=== PATIENT | female | born 1965 | race Caucasian/White ===

== ENCOUNTER 2020-03-21 14:44 | Emergency (ER) | payer OTHER, SELFPAY ==
[2020-03-21 14:45] VITALS: BP 122/77; PULSE 58; RESP 19; TEMP 36.7; O2SAT 96; BMI 28.8
--- NOTE | 2020-03-21 15:45 | HMH.EDUTC ---
[facility] [place] Clinical Impression: Bronchitis Sinusitis Qualifiers: Sinusitis location: unspecified location Chronicity: unspecified Qualified Code(s): J32.9 - Chronic sinusitis, unspecified Disposition: Home, Self-Care Condition on Discharge: Good Instructions: Sinusitis, Sinus Headache, Acute Bronchitis, DI for Sinusitis, DI for Acute Bronchitis, Azithromycin Additional Instructions: ? Start antibiotic today. Be sure to complete entire prescription even if feeling better ? Monitor temp. Tylenol every 4 hours as needed and / or ibuprofen every 6 hours as needed ( As long as your primary care physician has told you that it ok to take both. For fever/aches/pains ER if no less than 101 despite Tylenol or Motrin ? Humidifier/vaporizer or hot steamy shower ? Inhaler every 4-6 hours as needed like we discussed. If unsure how to use it, ask pharmacist to demonstrate how. Should help open airways and improve cough, wheezing, and shortness of breath ?Tessalon Perles will not cause drowsiness but use at bedtime to help stop cough so that you may get some rest. *Start steroid today. Helps with inflammation therefore, cough and wheezing. Follow directions on the package. Reviewed side effects. Patient reports taking them before. You was tested for COVID call back to the [facility] tomorrow for your test results and make sure to follow handout instructions Follow up IMMEDIATELY for new or worsening of symptoms OR no noticeable improvement over the next 48-72 hours. 911 immediately for any life threatening symptoms such as chest pain or difficulty breathing Prescriptions: Albuterol Sulfate [Proventil-HFA 90mcg/puff Inh] 1 - 2 puffs IH Q4HP PRN #1 inh PRN Reason: Shortness Of Breath Transmission Status: Received by [facility] #[id number] predniSONE [Deltasone 10mg tablet] 10 mg PO BID 5 Days #10 tab Transmission Status: Received by [facility] #[id number] Azithromycin [Z-J Carlos 250mg Tab] 250 mg PO DIRECTED #6 tab Transmission Status: Received by [facility] #[id number] Referrals: PCP,No [Primary Care Provider] - As needed Forms: Work/School Release Medical Decision Making - Brandon Inquiry Pt receiving controlled substance: No Brandon was queried for this patient: No Vital Signs: 03/21/20 14:45 03/21/20 15:59 Temperature 98.0 F 98.1 F Temperature Source Oral Pulse Rate 60 Pulse Rate [Right] 58 L Respiratory Rate 19 17 Blood Pressure 133/87 Blood Pressure [Right Arm] 122/77 Blood Pressure Mean [Right Arm] 92 02 Sat by Pulse Oximetry 96 Orders (Tests/Meds): ORDERS Category Date Time Status Coronavirus 19 Swab (OUTPT) Routine Lab 03/21/20 15:45 Ordered [facility] [place] - General Stated complaint: congestion, cough Time Seen by Provider: 03/21/20 15:45 Mode of Arrival: Ambulatory Limitations: No Limitations Description of Symptoms (Recalled from Triage Doc. by RN): C/O cough and congestion x3 days HEENT Symptoms (Recalled from RN notes): Yes Resp Symptoms (Recalled from RN notes): Yes Skin Symptoms (Recalled from RN notes): No MS Symptoms (Recalled from RN notes): No Functional Status (Recalled from RN notes): na - History of Present Illness Provider Complaint: Patient states that she has been having cough, sinus pain and pressure and scratchy throat for about 3-4 days and they wouldnt let her work States that she took some over the counter Medicaiton and it helped some but she is a heavy everyday smoker and often gets bronchitis State that today she was still having sinus pain and pressure so she come in to get checked and get checked for COVID so she could return to work - Related Data Home Medications Medication Instructions Recorded Confirmed Levothyroxine Sodium 125 mcg PO DAILY 08/25/18 03/21/20 [Levothyroxine 125mcg (0.125mg) Tab] PARoxetine HCL [Paroxetine HCl] 40 mg PO DAILY 08/25/18 03/21/20 Aspirin [Aspirin 81mg chewable 81 mg PO DAILY 03/21/20 03/21/20 tab] Fluticasone Propionate [Flonase
[2020-03-21 15:59] VITALS: BP 133/87; PULSE 60; RESP 17; TEMP 36.7; O2SAT 100
--- NOTE | 2020-03-21 16:15 | PC.NURSE ---
Notified lab a second time on covid swab, pt updated on POC
== END 2020-03-21 16:36 | disposition home or self-care (01) ==
PROVIDERS: Emergency Provider Nurse Practitioner
DX: J20.9 Acute bronchitis, unspecified (principal); J32.9 Chronic sinusitis, unspecified; Z20.828 Contact with and (suspected) exposure to other viral communicable diseases; F17.210 Nicotine dependence, cigarettes, uncomplicated
CPT/HCPCS: 99201; U0003

== ENCOUNTER 2020-04-17 10:48 | Emergency (ER) | payer OTHER, SELFPAY ==
[2020-04-17 10:50] VITALS: BP 115/74; PULSE 66; RESP 23; TEMP 36.7; O2SAT 96; BMI 29.7
--- NOTE | 2020-04-17 10:59 | XR_ITS ---
PROCEDURE: XR CHEST 2V CLINICAL HISTORY: soa COMPARISON: CR CXR2V XR chest 2V from 08/25/2018 CR XR CHEST 2V from 09/14/2019 FINDINGS: The cardiomediastinal silhouette and pulmonary vascularity are within normal limits. The lungs are clear without infiltrates, suspicious nodules, or pleural effusions. No acute bony abnormalities. IMPRESSION: No acute findings. Dictated by: Krystian Nur MD 04/17/2020 13:21 Krystian Nur MD in OV 04/17/2020 13:21
[2020-04-17 11:19] VITALS: BP 125/73; PULSE 68; O2SAT 94
[2020-04-17 11:33] VITALS: BP 112/71; PULSE 67; O2SAT 94
--- NOTE | 2020-04-17 11:42 | HMH.EDSOB ---
ED Disposition Clinical Impression: Acute exacerbation of chronic obstructive airways disease Disposition: Home, Self-Care Condition on Discharge: Good Instructions: DI for Shortness of Breath Prescriptions: Ipratropium/Albuterol Sulfate [Duoneb 3mL neb] 3 ml IH Q6H 30 Days #75 neb Transmission Status: Pending to [facility] Losartan Potassium 50 mg PO DAILY 30 Days #30 tab Transmission Status: Pending to [facility] methylPREDNISolone [Medrol 4mg tab] 4 mg PO DIRECTED #21 tab Transmission Status: Pending to [facility] Cefdinir [Omnicef 300mg Capsule] 300 mg PO BID 10 Days #20 cap Transmission Status: Pending to [facility] Cholecalciferol (Vitamin D3) [Replesta] 50,000 unit PO WEEKLY 30 Days #4 wafer Transmission Status: Pending to [facility] Referrals: Jacki Ivory DO [Primary Care Provider] - - Critical Care Critical Care Time: No Attestation: On 04/17/20, the high probability of a clinically significant, sudden or life threatening deterioration of the following system(s) required my full and direct attention, intervention and personal management. The time I documented below is in addition to time spent performing reported procedures but includes the following listed in this critical care notation. Medical Decision Making - Medical Records Medical records reviewed: Yes: I reviewed the patient's medical records. - Brandon Inquiry Pt receiving controlled substance: No Vital Signs: 04/17/20 10:50 04/17/20 11:19 04/17/20 11:33 Temperature 98.1 F Temperature Source Oral Pulse Rate [Right] 66 68 67 Respiratory Rate 23 Blood Pressure [Right Arm] 115/74 125/73 112/71 Blood Pressure Mean [Right Arm] 87 90 84 Blood Pressure Source [Right Arm] Automatic Cuff Automatic Cuff Blood Pressure Position [Right Arm] Sitting Sitting 02 Sat by Pulse Oximetry 96 94 L 94 L Oxygen Delivery Method Room Air Room Air - Lab Data Lab results reviewed: Yes: I reviewed the patient's lab results. Orders (Tests/Meds): ED MEDICATIONS Discontinued Medications Generic Name Dose Route Start Last Admin Trade Name Freq PRN Reason Stop Dose Admin Albuterol/Ipratropium 3 ml 04/17/20 10:59 04/17/20 11:05 Duoneb 3ml Neb IH 04/17/20 11:00 3 ml ONCE ONE Administration ORDERS Category Date Time Status XR chest 2V Stat Exams 04/17/20 10:59 Ordered Resp/SOB HPI - General Chief Complaint: Shortness of Breath/Dyspnea Stated Complaint: cg soa Time Seen by Provider: 04/17/20 11:42 Mode of Arrival: Ambulatory Source of Information: Patient Limitations: No Limitations Description of Symptoms (Recalled from ER Triage Doc. by RN): Pt states she was dx with bronchitis 2 weeks ago and continues to have increase soa and cough. - History of Present Illness 55-year-old female presents the emergency department with acute onset of shortness of breath. Patient states that she is actually been short of breath for about 2 weeks she has been treated with azithromycin and prednisone. She was on prednisone 1 tablet daily for 10 days she stated it really did not help. Patient also states that she has an albuterol inhaler and has helped somewhat but not given her full relief that she would like. Patient also states during the last 2 weeks she is been COVID tested 3 times and all of them been negative. Patient feels like this is similar to previous pneumonia that she is had in the past. Otherwise patient has no complaints. - Related Data Home Medications Medication Instructions Recorded Confirmed Levothyroxine Sodium 125 mcg PO DAILY 08/25/18 03/21/20 [Levothyroxine 125mcg (0.125mg) Tab] PARoxetine HCL [Paroxetine HCl] 40 mg PO DAILY 08/25/18 03/21/20 Aspirin [Aspirin 81mg chewable 81 mg PO DAILY 03/21/20 03/21/20 tab] Fluticasone Propionate [Flonase 2 spr NS DAILY 03/21/20 03/21/20 50mcg nasal spray 16gm] Previous
[2020-04-17 12:20] VITALS: BP 115/87; PULSE 65; RESP 21; TEMP 36.8; O2SAT 96
== END 2020-04-17 12:21 | disposition home or self-care (01) ==
PROVIDERS: Emergency Provider Family Medicine; PCP Family Medicine
DX: J44.1 Chronic obstructive pulmonary disease with (acute) exacerbation (principal); F17.210 Nicotine dependence, cigarettes, uncomplicated; Z79.899 Other long term (current) drug therapy; Z88.2 Allergy status to sulfonamides; Z88.5 Allergy status to narcotic agent
CPT/HCPCS: 71046; 99282

== ENCOUNTER 2020-08-08 07:30 | Emergency (ER) | payer OTHER, SELFPAY ==
[2020-08-08 07:31] VITALS: BP 135/78; PULSE 68; RESP 20; TEMP 36.5; O2SAT 97; BMI 29.2
[2020-08-08 07:59] VITALS: PULSE 64; O2SAT 96
[2020-08-08 08:34] VITALS: BP 125/82; PULSE 61; O2SAT 95
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
[2020-08-08 09:28] LABS: Microscopic, Urine URINE MICROSCOPIC (MICROSCOPIC)
[2020-08-08 09:30] LABS: Appearance,Urine CLEAR (Clear); Bilirubin,Urine Negative (Negative); Blood, Urine Negative (Negative); Color,Urine YELLOW (Yellow); Glucose,Urine (UA) Negative (Negative); Ketones,Urine Negative (Negative); Leukocyte Esterase,Urine Negative (Negative); Nitrate,Urine Negative (Negative); PH,Urine 5.5 (5.0-8.5); Protein,Urine Negative (Negative); Urobilinogen,Urine 0.2 EU/dl (0.2)
[2020-08-08 10:18] VITALS: BP 110/82; PULSE 61; RESP 20; TEMP 36.5; O2SAT 96
== END 2020-08-08 10:20 | disposition home or self-care (01) ==
PROVIDERS: Emergency Medicine; Emergency Provider Emergency Medicine; PCP Family Medicine
DX: S39.012A Strain of muscle, fascia and tendon of lower back, initial encounter (principal); Z88.5 Allergy status to narcotic agent; F17.210 Nicotine dependence, cigarettes, uncomplicated
CPT/HCPCS: 81001; 96372; 99282; J1030

== ENCOUNTER 2021-09-16 12:34 | Emergency (ER) | payer OTHER, SELFPAY ==
[2021-09-16 12:36] VITALS: BP 115/68; PULSE 71; RESP 16; TEMP 36.6; O2SAT 98; BMI 30.5
--- NOTE | 2021-09-16 12:48 | HMH.EDGENADL ---
ED Disposition Clinical Impression: Contusion of right knee and lower leg Qualifiers: Encounter type: initial encounter Qualified Code(s): S80.01XA - Contusion of right knee, initial encounter Disposition: Home, Self-Care Condition on Discharge: Good Instructions: Contusion Additional Instructions: , use crutches as needed, Follow up your Ortho doctor Referrals: Provider,Referral, [Primary Care Provider] - - Critical Care Critical Care Time: No Attestation: On , the high probability of a clinically significant, sudden or life threatening deterioration of the following system(s) required my full and direct attention, intervention and personal management. The time I documented below is in addition to time spent performing reported procedures but includes the following listed in this critical care notation. Medical Decision Making - Medical Records Medical records reviewed: Yes: I reviewed the patient's medical records. - Brandon Inquiry Pt receiving controlled substance: No Vital Signs: 09/16/21 12:36 09/16/21 13:00 09/16/21 13:30 Temperature 97.9 F Temperature Source Oral Pulse Rate 77 73 Pulse Rate [Right Radial] 71 Respiratory Rate 16 Blood Pressure 118/65 121/75 Blood Pressure [Right Arm] 115/68 Blood Pressure Mean 87 90 Blood Pressure Mean [Right Arm] 83 Blood Pressure Source [Right Arm] Automatic Cuff Blood Pressure Position [Right Arm] Sitting 02 Sat by Pulse Oximetry 98 Oxygen Delivery Method Room Air 09/16/21 14:00 09/16/21 14:42 Temperature 97.9 F Temperature Source Pulse Rate 80 80 Pulse Rate [Right Radial] Respiratory Rate 16 Blood Pressure 131/79 131/79 Blood Pressure [Right Arm] Blood Pressure Mean 99 Blood Pressure Mean [Right Arm] Blood Pressure Source [Right Arm] Blood Pressure Position [Right Arm] 02 Sat by Pulse Oximetry Oxygen Delivery Method Room Air Orders (Tests/Meds): ED MEDICATIONS Discontinued Medications Generic Name Dose Route Start Last Admin Trade Name Freq PRN Reason Stop Dose Admin Oxycodone/Acetaminophen 1 each 09/16/21 13:53 09/16/21 14:01 Oxycodone 5mg W/Apap 325mg Tablet PO 09/16/21 13:54 1 each ONCE ONE Administration General Adult HPI - General Stated complaint: AO fall 2/ rt leg injury Time Seen by Provider: 09/16/21 12:50 - History of Present Illness HPI narrative: 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(s) Radiation: extremity Severity: moderate Consistency: constant Relieving factors: immobilization Exacerbating factors: movement Associated symptoms: denies other symptoms - Related Data Home Medications Medication Instructions Recorded Confirmed Levothyroxine Sodium 125 mcg PO DAILY 08/25/18 03/21/20 [Levothyroxine 125mcg (0.125mg) Tab] PARoxetine HCL [Paroxetine HCl] 40 mg PO DAILY 08/25/18 03/21/20 Aspirin [Aspirin 81mg chewable 81 mg PO DAILY 03/21/20 03/21/20 tab] Fluticasone Propionate [Flonase 2 spr NS DAILY 03/21/20 03/21/20 50mcg nasal spray 16gm] Previous Rx's Medication Instructions Recorded Albuterol Sulfate [Proventil-HFA 1 - 2 puffs IH Q4HP PRN #1 inh 03/21/20 90mcg/puff Inh] Azithromycin [Z-J Carlos 250mg Tab] 250 mg PO DIRECTED #6 tab 03/21/20 predniSONE [Deltasone 10mg tablet] 10 mg PO BID 5 Days #10 tab 03/21/20 Cefdinir [Omnicef 300mg Capsule] 300 mg PO BID 10 Days #20 cap 04/17/20 Cholecalciferol (Vitamin D3) 50,000 unit PO WEEKLY 30 Days #4 04/17/20 [Replesta] wafer Ipratropium/Albuterol Sulfate 3 ml IH Q6H 30 Days #75 neb 04/17/20 [Duoneb 3mL neb] Losartan Potassium 50 mg PO DAILY 30 Days #30 tab 04/17/20 methylPREDNISolone [Medrol 4mg 4 mg PO DIRECTED #21 tab 04/17/20 tab] Cyclobenzaprine HCl [Flexeril 10mg 10 mg PO Q8H PRN 7 Days #21 tab 08/08/20 tablet] Diclofenac Sodium [Voltaren 100gm 1 applicatio TP Q4-6H PRN #100 gm 08/08/20 Topical Gel] methylPREDNISolone
--- NOTE | 2021-09-16 12:50 | XR_ITS ---
FINAL REPORT CLINICAL HISTORY: fall/pain FINDINGS: 3 views of the right knee reveal no evidence of fracture or dislocation. There are postoperative changes from ORIF of the femur with a screw plate and multiple screws present. There is a chronic bony irregularity of the distal femur. The bony alignment is normal. There are mild degenerative changes of the knee. There is no evidence of joint effusion. No localized soft tissue abnormality is identified. IMPRESSION: Postoperative and degenerative changes with no acute bony abnormality. Reviewed, Interpreted and Dictated by Carlos Gallardo III, MD Transcribed by Reshma Sandoval Authenticated by Carlos Gallardo III, MD on 09/16/2021 01:53:51 PM [facility]
[2021-09-16 13:00] VITALS: BP 118/65; PULSE 77
--- NOTE | 2021-09-16 13:07 | PC.NURSE ---
Pt returned from RAD
--- NOTE | 2021-09-16 13:07 | PC.NURSE ---
pt returned from rad
[2021-09-16 13:30] VITALS: BP 121/75; PULSE 73
--- NOTE | 2021-09-16 13:45 | PC.NURSE ---
Called radiology for stat reading for possible new fracture near hardware
[2021-09-16 14:00] VITALS: BP 131/79; PULSE 80
[2021-09-16 14:42] VITALS: BP 131/79; PULSE 80; RESP 16; TEMP 36.6; O2SAT 98
== END 2021-09-16 14:42 | disposition home or self-care (01) ==
PROVIDERS: Emergency Provider Emergency Medicine
DX: S80.01XA Contusion of right knee, initial encounter (principal); W00.0XXA Fall on same level due to ice and snow, initial encounter; F17.210 Nicotine dependence, cigarettes, uncomplicated
CPT/HCPCS: 73562; 99282

== ENCOUNTER 2021-12-19 15:22 | Emergency (ER) | payer OTHER, SELFPAY ==
[2021-12-19] VITALS (8 sets, daily range): BP systolic 120–154; BP diastolic 64–89; PULSE 62–80; RESP 18; TEMP 36.6; O2SAT 2–97; BMI 29.0
[2021-12-19 16:12] LABS: Chloride 105 mmol/L (98-107); Potassium 3.8 mmoL/L (3.5-5.1); Sodium 138 mmol/L (136-145)
[2021-12-19 16:15] LABS: Alanine Aminotransferase 288 U/L (12-78); Albumin Level 3.8 g/dl (3.5-5.0); Albumin/Globulin Ratio 1.2 (1.1-1.8); Alkaline Phosphatase 285 U/L (38-126); Anion Gap 6.8 mEq/L (5-15); Aspartate Amino Transferase 731 U/L (14-36); Blood Urea Nitrogen 9 mg/dl (7-17); Calcium 9.6 mg/dl (8.4-10.2); Carbon Dioxide 30 mmol/L (22.0-30.0); Creatinine Clearance Estimated 142 mL/min (50-200); Estimated Glomerular Filt Rate 104 ml/min (>60); GFR (African American) 126 ML/MIN (>60); Globulin 3.1 g/dL (1.3-3.2); Glucose 119 mg/dl (74-100); Total Protein,Serum 6.9 g/dl (6.3-8.2)
[2021-12-19 16:19] LABS: Basophils # 0.4 K/mm3 (0-0.2); Basophils % 3.1 % (0.1-2.0); Eosinophils # 0.2 K/mm3 (0.0-0.4); Eosinophils % 1.2 % (0.1-12.0); Hematocrit 51.7 % (37.0-47.0); Hemoglobin 17.1 g/dL (12.2-16.2); Lymphocytes % 29.6 % (10-50); Mean Corpuscular Hemoglobin 31.3 pg (27.0-31.2); Mean Corpuscular Volume 94.6 fl (81-99); Monocytes # 0.9 K/mm3 (0.1-1.0); Neutrophils # 7.9 K/mm3 (1.8-7.8); Neutrophils % 59.1 % (37.0-80.0); Platelet Count 363 K/mm3 (142-424); Red Blood Count 5.46 M/mm3 (4.20-5.40); White Blood Count 13.4 K/mm3 (4.8-10.8)
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
[2021-12-19 16:29] LABS: Troponin I < 0.01 ng/ml (0.00-0.034)
[2021-12-19 16:30] LABS: Lipase 610 U/L (23-300)
--- NOTE | 2021-12-19 17:42 | HMH.EDABDPAI ---
ED Disposition Clinical Impression: Acute cholecystitis, Cholangitis Biliary acute pancreatitis Qualifiers: Acute pancreatitis complication: infected necrosis Qualified Code(s): K85.12 - Biliary acute pancreatitis with infected necrosis Disposition: er Intermediate Care Fac Condition on Discharge: Serious Instructions: DI for Acute Abdominal Pain Referrals: Provider,Referral, [Primary Care Provider] - - Critical Care Critical Care Time: No Attestation: On 12/19/21, the high probability of a clinically significant, sudden or life threatening deterioration of the following system(s) required my full and direct attention, intervention and personal management. The time I documented below is in addition to time spent performing reported procedures but includes the following listed in this critical care notation. Medical Decision Making - Medical Records Medical records reviewed: Yes: I reviewed the patient's medical records. - Brandon Inquiry Pt receiving controlled substance: Yes Brandon was queried for this patient: No Reason not queried -: Emergent pt cond-no time Risks and benefits of using a controlled substance: were discussed with pt by me Vital Signs: 12/19/21 15:24 12/19/21 15:30 12/19/21 16:00 Temperature 97.8 F Temperature Source Oral Pulse Rate 69 63 Pulse Rate [Right Radial] 71 Respiratory Rate 18 18 18 Blood Pressure 154/77 H 120/64 Blood Pressure [Right Arm] 154/77 H Blood Pressure Mean 120 84 Blood Pressure Mean [Right Arm] 102 Blood Pressure Source Automatic Cuff Blood Pressure Source [Right Arm] Automatic Cuff Blood Pressure Position Sitting Blood Pressure Position [Right Arm] Sitting 02 Sat by Pulse Oximetry 97 97 96 Oxygen Delivery Method Nasal Cannula Nasal Cannula Room Air Oxygen Flow Rate (LPM) 2 2 12/19/21 17:00 12/19/21 17:30 12/19/21 18:00 Temperature Temperature Source Pulse Rate 70 80 65 Pulse Rate [Right Radial] Respiratory Rate 18 18 18 Blood Pressure 132/83 131/81 140/89 Blood Pressure [Right Arm] Blood Pressure Mean 93 102 111 Blood Pressure Mean [Right Arm] Blood Pressure Source Blood Pressure Source [Right Arm] Blood Pressure Position Blood Pressure Position [Right Arm] 02 Sat by Pulse Oximetry 2 L 95 95 Oxygen Delivery Method Nasal Cannula Nasal Cannula Nasal Cannula Oxygen Flow Rate (LPM) 2 2 2 - Lab Data Lab Results 12/19/21 16:00: WBC 13.4 H, RBC 5.46 H, Hgb 17.1 H, Hct 51.7 H, MCV 94.6, MCH 31.3 H, MCHC 33.0, RDW 14.0, Plt Count 363, MPV 10.0, Neut % (Auto) 59.1, Lymph % (Auto) 29.6, Sevier % (Auto) 7.0, Eos % (Auto) 1.2, Baso % (Auto) 3.1 H, Neut # (Auto) 7.9 H, Lymph # (Auto) 4.0, Sevier # (Auto) 0.9, Eos # (Auto) 0.2, Baso # (Auto) 0.4 H 12/19/21 16:00: Sodium 138, Potassium 3.8, Chloride 105, Carbon Dioxide 30, Anion Gap 6.8, BUN 9, Creatinine 0.60, Estimated Creat Clear 142, Estimated GFR 104, Est GFR ( Amer) 126, Glucose 119 H, Calcium 9.6, Total Bilirubin 3.0 H, AST 731 H*, ALT 288 H, Alkaline Phosphatase 285 H, Troponin I < 0.01, Total Protein 6.9, Albumin 3.8, Globulin 3.1, Albumin/Globulin Ratio 1.2, Lipase 610 H Result diagrams: 12/19/21 16:00 12/19/21 16:00 Orders (Tests/Meds): ED MEDICATIONS Generic Name Dose Route Start Last Admin Trade Name Freq PRN Reason Stop Dose Admin Piperacillin Sod/Tazobactam 100 mls @ 200 mls/hr 12/19/21 17:45 Sod 4.5 gm/ Sodium Chloride IV 01/02/22 17:44 Q8H ALEIDA Sodium Chloride 10 ml 12/19/21 16:01 Sodium Chloride 0.9% 10ml Flush Syringe IV 01/18/22 16:00 NEEDED PRN Maintain IV Site Discontinued Medications Generic Name Dose Route Start Last Admin Trade Name Freq PRN Reason Stop Dose Admin Sodium Chloride 1,000 mls @ 999 mls/hr 12/19/21 15:45 12/19/21 16:03 Sod Chlor 0.9% 1000ml Bag IV 12/19/21 16:45 999 mls/hr .Q1H1M ALEIDA Administration Iopamidol 75 ml 12/19/21 16:43 12/19/21 16:44 Iopamidol-3
--- NOTE | 2021-12-19 18:05 | PC.NURSE ---
Dr Wray speaking with transfer center
--- NOTE | 2021-12-19 18:29 | PC.NURSE ---
notified [facility] transport, states they will be up here to transport pt when [place] the [place]
[2021-12-19 18:34] LABS: Coronavirus 19, PCR Not Detected (NotDetected); Influenza A, PCR Not Detected (NotDetected); Influenza B, PCR Not Detected (NotDetected)
--- NOTE | 2021-12-19 18:36 | PC.NURSE ---
report called to BRISEIDA Young at ER
--- NOTE | 2021-12-19 19:20 | PC.NURSE ---
shift change report given to em,rn - pt is awaiting transfer per [facility] to ER
== END 2021-12-19 20:40 ==
PROVIDERS: Emergency Provider Emergency Medicine
DX: K85.12 Biliary acute pancreatitis with infected necrosis (principal); K81.0 Acute cholecystitis; R19.7 Diarrhea, unspecified; R11.10 Vomiting, unspecified; Z20.822 Contact with and (suspected) exposure to COVID-19; Z79.51 Long term (current) use of inhaled steroids; Z79.52 Long term (current) use of systemic steroids; Z79.82 Long term (current) use of aspirin; Z79.899 Other long term (current) drug therapy; Z88.5 Allergy status to narcotic agent; Z88.8 Allergy status to other drugs, medicaments and biological substances
CPT/HCPCS: 74177; 80053; 83690; 84484; 85025; 96361; 96374; 96375; 96376; 99285; C9803; J2405; J2543; Q9967; U0003; U0005

== ENCOUNTER 2022-09-21 12:38 | Emergency (ER) | payer OTHER, SELFPAY ==
[2022-09-21 12:50] VITALS: BP 149/86; PULSE 63; RESP 18; O2SAT 97
[2022-09-21 12:55] VITALS: BP 149/86; PULSE 80; RESP 20; TEMP 36.7; O2SAT 96; BMI 28.1
[2022-09-21 13:01] VITALS: BP 129/87; PULSE 80; RESP 18; O2SAT 99
[2022-09-21 13:12] LABS: Coronavirus 19, PCR Not Detected (NotDetected); Influenza B, PCR Not Detected (NotDetected)
[2022-09-21 13:30] VITALS: BP 120/97; PULSE 77; RESP 18; O2SAT 94
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
--- NOTE | 2022-09-21 13:32 | HMH.EDGENADL ---
Discharge Plan Disposition Patient Disposition: Home, Self-Care Condition: Good Prescriptions Prescriptions: New levofloxacin 500 mg tablet 500 mg PO DAILY 7 Days Qty: 7 0RF benzonatate 100 mg capsule 100 mg PO TID PRN (Reason: cough) Qty: 20 0RF No Action aspirin 81 MG tablet,chewable 81 mg PO DAILY fluticasone propionate 120 SPR/BOT bottle 2 spr NS DAILY prednisone 10 MG tablet 10 mg PO BID 5 Days Qty: 10 0RF azithromycin 250 MG tablet 250 mg PO DIRECTED Qty: 6 0RF Rx Instructions: Take two (2) tablets on day #1, then one (1) tablet day #2 thru #5 albuterol sulfate 200 PUFFS HFA aerosol inhaler 1 - 2 puffs IH Q4HP PRN (Reason: Shortness Of Breath) Qty: 1 0RF levothyroxine 125 MCG tablet 125 mcg PO DAILY paroxetine HCl 40 MG tablet 40 mg PO DAILY cefdinir 300 MG capsule 300 mg PO BID 10 Days Qty: 20 0RF losartan 50 MG tablet 50 mg PO DAILY 30 Days Qty: 30 2RF cholecalciferol (vitamin D3) 1,250 MCG wafer 50,000 unit PO WEEKLY 30 Days Qty: 4 3RF methylprednisolone 4 MG tablet 4 mg PO DIRECTED Qty: 21 0RF Rx Instructions: Take as directed on package instructions ipratropium-albuterol 3 ML solution for nebulization 3 ml IH Q6H 30 Days Qty: 75 0RF cyclobenzaprine 10 MG tablet 10 mg PO Q8H PRN (Reason: Muscle Spasm) 7 Days Qty: 21 0RF diclofenac sodium 100 GM gel 1 applicatio TP Q4-6H PRN (Reason: Moderate Pain) Qty: 100 1RF methylprednisolone 4 MG tablet 4 mg PO DIRECTED Qty: 21 0RF Rx Instructions: Take as directed on package instructions Referrals Follow up/Referrals: Jacki Ivory DO [Primary Care Provider] - See instructions Activity Restrictions/Add. Instructions Additional Instructions/Restrictions: Levaquin as prescribed. Tessalon as needed for cough. Follow-up with primary care provider if not improving in 4 to 5 days. Return emergency department if worsening shortness of breath or fever. Clinical Impressions Clinical Impression: Influenza A, Acute bronchitis Instructions Patient Instructions: DI for Influenza -- Adult, DI for Acute Bronchitis Discharge ED Provider: Renusch,Zoltan General Adult HPI General Chief complaint: Shortness of Breath/Dyspnea Stated complaint: Cough,Congestion,headache,soa Time Seen by Provider: 09/21/22 13:21 Mode of Arrival: Ambulatory Source of Information: Patient Limitations: No Limitations Description of Symptoms (Recalled from ER Triage Doc. by RN): Presents with increased shortness of breath, frequent productive cough, and body aches since last Thu. Reports 101 F fever Thursday. Recent exposure to relative with illness. + Smoker. Hx of COPD. Home O2 2.5L (baseline). History of Present Illness HPI narrative: Patient states that she has been sick since Thursday 4 days ago. She has a bad cough. Producing white sputum. Low-grade fever, body aches. Nasal congestion. No sore throat except when she coughs. No chest pain. She has some abdominal soreness from tightening her abdominal muscles and coughing. She has COPD and is on oxygen 2.5 L at all times. She is a smoker. Her adopted daughter is also here being seen for the same symptoms and has been sick longer reporting to the patient. Related Data Home Medications Medication Instructions Recorded Confirmed levothyroxine 125 mcg tablet 125 mcg PO DAILY THYROID 08/25/18 03/21/20 paroxetine HCl 40 mg tablet 40 mg PO DAILY Depression 08/25/18 03/21/20 aspirin 81 mg chewable tablet 81 mg PO DAILY Heartburn 03/21/20 03/21/20 fluticasone propionate 50 2 spr NS DAILY allergies 03/21/20 03/21/20 mcg/actuation nasal spray,suspension Previous Rx's Medication Instructions Recorded albuterol sulfate 90 mcg/actuation 1 - 2 puffs IH Q4HP PRN Shortness 03/21/20 aerosol inhaler Of Breath #1 inh azithromycin 250 mg tablet 250 mg PO DIRECTED #6 tabs 03/21/20 prednisone 10 mg ta
[2022-09-21 13:35] LABS: Influenza A, PCR Detected (NotDetected)
[2022-09-21 14:00] LABS: Alanine Aminotransferase 29 U/L (12-78); Albumin Level 3.9 g/dl (3.5-5.0); Albumin/Globulin Ratio 1.3 (1.1-1.8); Alkaline Phosphatase 151 U/L (38-126); Aspartate Amino Transferase 50 U/L (14-36); Bilirubin,Total 0.3 mg/dl (0.2-1.3); Blood Urea Nitrogen 7 mg/dl (7-17); Calcium 8.5 mg/dl (8.4-10.2); Carbon Dioxide 28 mmol/L (22.0-30.0); Chloride 105 mmol/L (98-107); Creatinine Clearance Estimated 137 mL/min (50-200); Estimated Glomerular Filt Rate 104 ml/min (>60); GFR (African American) 126 ML/MIN (>60); Globulin 3.1 g/dL (1.3-3.2); Glucose 94 mg/dl (74-100); Sodium 139 mmol/L (136-145)
[2022-09-21 14:01] VITALS: BP 132/77; PULSE 102; RESP 18; O2SAT 95
[2022-09-21 14:01] LABS: Lactic Acid 0.7 mmol/L (0.7-2.1)
[2022-09-21 14:08] LABS: Basophils # 0.2 K/mm3 (0-0.2); Basophils % 2.1 % (0.1-2.0); Eosinophils # 0.2 K/mm3 (0.0-0.4); Eosinophils % 2.8 % (0.1-12.0); Hematocrit 50.8 % (37.0-47.0); Lymphocytes # 3.5 K/mm3 (0.7-4.5); Lymphocytes % 46.5 % (10-50); Mean Corpuscular HGB Conc 33.5 g/dL (31.8-35.4); Mean Corpuscular Hemoglobin 31.5 pg (27.0-31.2); Mean Platelet Volume 9.7 fl (7.4-10.4); Monocytes # 0.7 K/mm3 (0.1-1.0); Monocytes % 9.4 % (1.7-9.3); Neutrophils # 2.9 K/mm3 (1.8-7.8); Neutrophils % 39.3 % (37.0-80.0); Platelet Count 308 K/mm3 (142-424); Red Cell Distribution Width 13.4 % (11.5-17.5); White Blood Count 7.5 K/mm3 (4.8-10.8)
[2022-09-21 15:12] VITALS: BP 142/90; PULSE 72; RESP 18; TEMP 36.8
== END 2022-09-21 15:14 | disposition home or self-care (01) ==
PROVIDERS: Emergency Provider Emergency Medicine; PCP Family Medicine
DX: J09.X9 Influenza due to identified novel influenza A virus with other manifestations (principal); J20.9 Acute bronchitis, unspecified; F17.210 Nicotine dependence, cigarettes, uncomplicated; Z20.822 Contact with and (suspected) exposure to COVID-19
CPT/HCPCS: 71046; 80053; 83605; 85025; 87040; 99285; C9803; U0003; U0005

== ENCOUNTER 2023-05-16 14:07 | Emergency (ER) | payer OTHER, SELFPAY ==
[2023-05-16 14:08] VITALS: BP 165/94; PULSE 60; RESP 22; TEMP 36.4; O2SAT 96; BMI 29.0
--- NOTE | 2023-05-16 14:25 | PC.NURSE ---
Dr. Hall at BS for pt eval
[2023-05-16 14:30] VITALS: BP 149/92; PULSE 60; RESP 20; O2SAT 96
--- NOTE | 2023-05-16 14:42 | CT_ITS ---
PROCEDURE INFORMATION: Exam: CT Abdomen And Pelvis With Contrast Exam date and time: 05/16/2023 3:25 PM Age: 58 years old Clinical indication: Abdominal pain; Prior surgery; Surgery date: 6+ months; Surgery type: Gallbladder; Additional info: Upper abdominal pain TECHNIQUE: Imaging protocol: Computed tomography of the abdomen and pelvis with contrast. Radiation optimization: All CT scans at this facility use at least one of these dose optimization techniques: automated exposure control; mA and/or kV adjustment per patient size (includes targeted exams where dose is matched to clinical indication); or iterative reconstruction. Contrast material: ISOVUE; Contrast volume: 75 ml; Contrast route: IV; REPORTING DATA: Count of CT and Cardiac NM exams in prior 12 months: This patient has received 0 known CTs and 0 known cardiac nuclear medicine studies in the 12 months prior to the current study. COMPARISON: CT ABDOMEN PELVIS W CON 12/19/2021 4:32 PM FINDINGS: Liver: Normal. No mass. Gallbladder and bile ducts: Post cholecystectomy clips. Pancreas: Normal. No ductal dilation. Spleen: Post splenectomy changes. Few small splenules in the left upper quadrant the abdomen. Adrenal glands: Normal. No mass. Kidneys and ureters: Normal. No hydronephrosis. Stomach and bowel: Unremarkable. No obstruction. No mucosal thickening. Appendix: The appendix is visualized and appears normal. Intraperitoneal space: Unremarkable. No free air. No significant fluid collection. Vasculature: Partially visualized descending thoracic aortic aneurysm stent graft. Partially visualized leadless cardiac device in the right ventricle. Celiac artery ostial stent. Aortoiliac atherosclerosis. No aneurysm. Lymph nodes: Unremarkable. No enlarged lymph nodes. Urinary bladder: Unremarkable as visualized. Reproductive: Post hysterectomy. Bones/joints: Unremarkable. No acute fracture. Soft tissues: Unremarkable. IMPRESSION: No acute abdominopelvic abnormality.
--- NOTE | 2023-05-16 14:43 | XR_ITS ---
PROCEDURE INFORMATION: Exam: XR Chest Exam date and time: 05/16/2023 3:49 PM Age: 58 years old Clinical indication: Cough; Additional info: Ruq abd pain, increased cough TECHNIQUE: Imaging protocol: Radiologic exam of the chest. Views: 1 view. COMPARISON: CR XR CHEST 2V 09/21/2022 1:35 PM FINDINGS: Lungs: Unremarkable. No consolidation. Pleural spaces: Unremarkable. No pleural effusion. No pneumothorax. Heart/Mediastinum: Status post thoracic endovascular aortic aneurysm repair with stent graft. Leadless cardiac device overlying the left paramidline chest. No cardiomegaly. Bones/joints: No acute fracture. IMPRESSION: No acute cardiopulmonary abnormality.
[2023-05-16 15:08] LABS: Microscopic, Urine URINE MICROSCOPIC (MICROSCOPIC)
--- NOTE | 2023-05-16 15:11 | ECG_ITS ---
APPROVED REPORT Exam: Resting ECG HR:55 bpm ECG Measurements Heart Rate 55 AXES GA 160 P 67 QRSd 125 QRS 4 QT 461 T 56 QTc 450 Conclusion SINUS BRADYCARDIA with isolated PVC RIGHT BUNDLE BRANCH BLOCK [120+ ms QRS DURATION, UPRIGHT V1, 40+ ms S IN I/aVL/V4/V5/V6] ABNORMAL ECG UNCONFIRMED REPORT Electronically signed by : Hipolito Wagner MD 05/17/2023 07:34:27
--- NOTE | 2023-05-16 15:15 | PC.NURSE ---
Pt gone to RAD via wheelchair
--- NOTE | 2023-05-16 15:21 | PC.NURSE ---
pt to CT scan via wheelchair
[2023-05-16 15:24] LABS: Coronavirus 19, PCR Not Detected (NotDetected); Influenza A, PCR Not Detected (NotDetected); Influenza B, PCR Not Detected (NotDetected)
--- NOTE | 2023-05-16 15:25 | HMH.EDGENADL ---
Discharge Plan Disposition Patient Disposition: Home, Self-Care Prescriptions Prescriptions: New dicyclomine 20 mg tablet 20 mg PO TID PRN (Reason: abdominal pain or spasm) 7 Days Qty: 21 0RF ondansetron 4 mg tablet,disintegrating 4 mg PO Q6H PRN (Reason: nausea and vomiting) 5 Days Qty: 20 0RF No Action fluticasone propionate 120 SPR/BOT bottle 2 spr NS DAILY albuterol sulfate 200 PUFFS HFA aerosol inhaler 1 - 2 puffs IH Q4HP PRN (Reason: Shortness Of Breath) Qty: 1 0RF buspirone 5 mg tablet 5 mg PO BIDP PRN (Reason: Anxiety) Patient Comments: TAKE 1 TABLET BY MOUTH TWICE A DAY quetiapine 100 mg tablet 100 mg PO HS Patient Comments: TAKE ONE TABLET BY MOUTH NIGHTLY levothyroxine 125 MCG tablet 125 mcg PO DAILY paroxetine HCl 40 MG tablet 40 mg PO DAILY losartan 50 MG tablet 50 mg PO DAILY 30 Days Qty: 30 2RF cholecalciferol (vitamin D3) 1,250 MCG wafer 50,000 unit PO WEEKLY 30 Days Qty: 4 3RF ipratropium-albuterol 3 ML solution for nebulization 3 ml IH Q6H 30 Days Qty: 75 0RF cyclobenzaprine 10 MG tablet 10 mg PO Q8H PRN (Reason: Muscle Spasm) 7 Days Qty: 21 0RF diclofenac sodium 100 GM gel 1 applicatio TP Q4-6H PRN (Reason: Moderate Pain) Qty: 100 1RF Referrals Follow up/Referrals: Jacki Ivory DO [Primary Care Provider] - See instructions Activity Restrictions/Add. Instructions Additional Instructions/Restrictions: There was no emergent or surgical abnormality found on your emergency evaluation today. Please follow with your primary care doctor regarding your discomfort return to the emergency department any worsening symptoms. Clinical Impressions Clinical Impression: Nonspecific abdominal pain Instructions Patient Instructions: DI for Acute Abdominal Pain Discharge ED Provider: Harshad Hall I General Adult HPI <Harshad Hall MD - Last Filed: 05/16/23 16:14> General Chief complaint: Abdominal Pain Stated complaint: right side pain Time Seen by Provider: 05/16/23 14:18 Mode of Arrival: Family Vehicle Source of Information: Patient Limitations: No Limitations Description of Symptoms (Recalled from ER Triage Doc. by RN): Pt c/o RUQ ABD pain that began today. States the pain has been severe and pain is more tolerable if she pushes in . Reports the pain is similar to before I had my gallbladder out . Denies any current nausea or vomiting. She did have diarrhea yesterday. She also has a hx of pancreatitis and Hep C. Denies fever. She reports chronic body aches and chills. States she had a CT with IV contrast @ last week to check stent in my stomach History of Present Illness HPI narrative: Patient is a 58-year-old female with history of COPD on 2.5 L nasal cannula, prior cholecystectomy, pacemaker in place presenting to the emergency department with right upper quadrant abdominal pain that started this morning. History was conducted with the patient at bedside. Patient reports that her pain feels similar to prior gallbladder pain when she had her gallbladder removed in December of this year. She reports that the pain is in her right upper quadrant, is a dull pain that occasionally has sharp worsening of pain. He has not had any associated nausea or vomiting. However, over the past 2 days she has had 2 episodes of watery nonbloody diarrhea. She has reported a slightly increased dry cough. Denies congestion, runny nose, fever, chest pain, shortness of breath or difficulty breathing that has changed from baseline. Related Data Home Medications Medication Instructions Recorded Confirmed levothyroxine 125 mcg tablet 125 mcg PO DAILY THYROID 08/25/18 05/16/23 paroxetine HCl 40 mg tablet 40 mg PO DAILY Depression 08/25/18 05/16/23 fluticasone propionate 50 2 spr NS DAILY allergies 03/21/20 05/16/23 mcg/actuation nasal spray,suspension buspirone 5 mg tablet 5 mg PO BIDP PRN Anxiety 05/16/23 05/16/23 quetiapine
[2023-05-16 15:29] LABS: Chloride 107 mmol/L (98-107); Sodium 140 mmol/L (136-145)
[2023-05-16 15:29] LABS: Appearance,Urine CLEAR (Clear); Bilirubin,Urine Negative (Negative); Blood, Urine Negative (Negative); Color,Urine YELLOW (Yellow); Glucose,Urine (UA) Negative (Negative); Ketones,Urine Negative (Negative); Leukocyte Esterase,Urine Negative (Negative); Nitrate,Urine Negative (Negative); PH,Urine 5.5 (5.0-8.5); Protein,Urine Negative (Negative); Specific Gravity, Urine >= 1.030 (1.005-1.030); Urobilinogen,Urine 0.2 EU/dl (0.2)
[2023-05-16 15:31] LABS: Alanine Aminotransferase 18 U/L (12-78); Aspartate Amino Transferase 29 U/L (14-36); Basophils # 0.1 K/mm3 (0-0.2); Basophils % 1.1 % (0.1-2.0); Bilirubin,Total 0.3 mg/dl (0.2-1.3); Blood Urea Nitrogen 8 mg/dl (7-17); Creatinine Clearance Estimated 139 mL/min (50-200); Eosinophils # 0.4 K/mm3 (0.0-0.4); Eosinophils % 3.8 % (0.1-12.0); Estimated Glomerular Filt Rate 103 ml/min (>60); GFR (African American) 125 ML/MIN (>60); Hematocrit 54.3 % (37.0-47.0); Hemoglobin 17.4 g/dL (12.2-16.2); Lymphocytes # 5.7 K/mm3 (0.7-4.5); Lymphocytes % 49.3 % (10-50); Mean Corpuscular Hemoglobin 31.1 pg (27.0-31.2); Mean Corpuscular Volume 97.3 fl (81-99); Mean Platelet Volume 9.8 fl (7.4-10.4); Monocytes # 0.7 K/mm3 (0.1-1.0); Monocytes % 6.4 % (1.7-9.3); Neutrophils # 4.5 K/mm3 (1.8-7.8); Neutrophils % 39.3 % (37.0-80.0); Platelet Count 293 K/mm3 (142-424); Red Blood Count 5.58 M/mm3 (4.20-5.40); Red Cell Distribution Width 13.5 % (11.5-17.5); White Blood Count 11.5 K/mm3 (4.8-10.8)
[2023-05-16 15:32] LABS: Albumin Level 4.1 g/dl (3.5-5.0); Albumin/Globulin Ratio 1.3 (1.1-1.8); Alkaline Phosphatase 121 U/L (38-126); Carbon Dioxide 26 mmol/L (22.0-30.0); Globulin 3.2 g/dL (1.3-3.2); Glucose 95 mg/dl (74-100); Lipase 66 U/L (23-300); Total Protein,Serum 7.3 g/dl (6.3-8.2)
--- NOTE | 2023-05-16 15:36 | PC.NURSE ---
pt return from CT
[2023-05-16 15:37] VITALS: BP 141/69; PULSE 59; O2SAT 93
--- NOTE | 2023-05-16 15:40 | PC.NURSE ---
cmm technician notified staff that following ct scan, pt promptly vomited. Dr. Hall notified and order new antiemetic.
[2023-05-16 15:46] LABS: Squamous Epithelial Cell,Urine Occasional #/hpf (0-5)
--- NOTE | 2023-05-16 16:30 | PC.NURSE ---
Dr. Caceres at bedside discussing results with pt
[2023-05-16 16:50] VITALS: BP 142/80; PULSE 60; RESP 20; TEMP 36.7; O2SAT 95
== END 2023-05-16 17:02 | disposition home or self-care (01) ==
PROVIDERS: Emergency Provider Emergency Medicine; PCP Family Medicine
DX: R10.10 Upper abdominal pain, unspecified (principal); R11.2 Nausea with vomiting, unspecified; R00.1 Bradycardia, unspecified; F17.210 Nicotine dependence, cigarettes, uncomplicated; J44.9 Chronic obstructive pulmonary disease, unspecified; Z95.0 Presence of cardiac pacemaker
CPT/HCPCS: 71045; 74177; 80053; 81001; 83690; 85025; 87636; 93005; 96374; 96375; 99285; J2405; Q9967

== ENCOUNTER 2024-02-04 10:25 | Outpatient (CLI) | payer MEDICAID, SELFPAY ==
[2024-02-04 17:14] LABS: Microscopic, Urine URINE MICROSCOPIC (MICROSCOPIC)
[2024-02-04 17:51] LABS: Basophils # 0.1 K/mm3 (0-0.2); Eosinophils # 0.4 K/mm3 (0.0-0.4); Eosinophils % 3.7 % (0.1-12.0); Hematocrit 53.3 % (37.0-47.0); Hemoglobin 17.8 g/dL (12.2-16.2); Lymphocytes # 6.7 K/mm3 (0.7-4.5); Lymphocytes % 59.3 % (10-50); Mean Corpuscular HGB Conc 33.4 g/dL (31.8-35.4); Mean Corpuscular Hemoglobin 32.3 pg (27.0-31.2); Mean Corpuscular Volume 96.7 fl (81-99); Mean Platelet Volume 11.1 fl (7.4-10.4); Monocytes # 0.8 K/mm3 (0.1-1.0); Monocytes % 7.1 % (1.7-9.3); Neutrophils # 3.3 K/mm3 (1.8-7.8); Platelet Count 268 K/mm3 (142-424); Red Blood Count 5.51 M/mm3 (4.20-5.40); Red Cell Distribution Width 14.2 % (11.5-17.5); White Blood Count 11.4 K/mm3 (4.8-10.8)
[2024-02-04 17:56] LABS: Appearance,Urine CLEAR (Clear); Bilirubin,Urine Negative (Negative); Blood, Urine Negative (Negative); Color,Urine YELLOW (Yellow); Glucose,Urine (UA) Negative (Negative); Ketones,Urine Negative (Negative); Leukocyte Esterase,Urine Negative (Negative); Nitrate,Urine Negative (Negative); Protein,Urine Negative (Negative); Urobilinogen,Urine 0.2 EU/dl (0.2)
[2024-02-04 18:08] LABS: MANUAL DIFFERENTIAL MANUAL DIFFERENTIAL (MANUAL DIFF)
[2024-02-04 18:09] LABS: Total Protein,Urine Random < 5.0 mg/dL (0.0-12.0)
[2024-02-04 18:10] LABS: Alanine Aminotransferase 16 U/L (12-78); Albumin Level 4.9 g/dl (3.5-5.0); Albumin/Globulin Ratio 1.4 (1.1-1.8); Alkaline Phosphatase 139 U/L (38-126); Anion Gap 13.4 mEq/L (5-15); Aspartate Amino Transferase 27 U/L (14-36); Bilirubin,Total 0.5 mg/dl (0.2-1.3); Blood Urea Nitrogen 9 mg/dl (7-17); Calcium 10.2 mg/dl (8.4-10.2); Carbon Dioxide 29 mmol/L (22.0-30.0); Chloride 102 mmol/L (98-107); Chol/HDL Ratio 4.9 (1-3.5); Cholesterol 301 mg/dl (140-200); Estimated Glomerular Filt Rate 87 ml/min (>60); GFR (African American) 105 ML/MIN (>60); Globulin 3.4 g/dL (1.3-3.2); Glucose 84 mg/dl (74-100); HDL Cholesterol 61 mg/dl (40-60); Magnesium 2.2 mg/dl (1.6-2.3); Phosphorous 4.3 mg/dl (2.5-4.5); Potassium 4.4 mmoL/L (3.5-5.1); Sodium 140 mmol/L (136-145); Total Protein,Serum 8.3 g/dl (6.3-8.2); Triglycerides 138 mg/dl (30-150); VLDL Cholesterol 28 mg/dL (0-40)
[2024-02-04 18:21] LABS: Direct LDL Cholesterol 200.33 mg/dL (100-129)
[2024-02-04 18:26] LABS: Free T4 (Free Thyroxine) 0.84 ng/dl (0.78-2.19)
[2024-02-04 18:31] LABS: Eosinophils % 5 % (0-3); Lymphocytes % 59 % (10-50); Monocytes % 9 % (2-9); Neutrophils % 25 % (42-76); Total Cells Counted 100
[2024-02-04 18:32] LABS: Hypochromasia 1+; Platelet Estimate Normal; RBC Morphology Normal
[2024-02-04 18:33] LABS: 25-OH Vitamin D, Total 43.9 ng/mL (30-100)
[2024-02-04 19:00] LABS: Vitamin B12 310 pg/mL (239-931)
[2024-02-04 19:51] LABS: Iron 128 ug/dL (37-170)
[2024-02-04 20:02] LABS: Total Iron Binding Capacity 368 ug/dL (265-497)
[2024-02-04 20:28] LABS: Ferritin 89.4 ng/ml (11.1-264)
[2024-02-05 14:02] LABS: HIV (1&2) Antibody Rapid NEGATIVE
[2024-02-09 14:12] LABS: HCV Ab Reactive (Non Reactive)
== END 2024-02-04 23:59 | disposition home or self-care (01) ==
LOC: LAB.DROPOF 02-05 10:26
PROVIDERS: PCP Nurse Practitioner Family; Visit Provider Nurse Practitioner Family
DX: Z13.220 Encounter for screening for lipoid disorders (principal); Z13.1 Encounter for screening for diabetes mellitus; R53.83 Other fatigue; I10 Essential (primary) hypertension; G25.81 Restless legs syndrome; B19.20 Unspecified viral hepatitis C without hepatic coma; E03.9 Hypothyroidism, unspecified; Z11.4 Encounter for screening for human immunodeficiency virus [HIV]; Z72.0 Tobacco use
CPT/HCPCS: 87522; 86703; 80050; 80053; 80061; 81001; 82306; 82607; 82728; 83540; 83550; 83735; 84100; 84156; 84439; 84443; 85007; 85025; 85027; 87086

== ENCOUNTER 2024-02-24 13:24 | Outpatient (CLI) | payer MEDICAID, SELFPAY ==
--- NOTE | 2024-02-24 13:24 | CT_ITS ---
FINAL REPORT TECHNIQUE: Thin section axial images were obtained through the lungs using a low-dose technique per lung cancer screening protocol. Reconstruction images were obtained using the axial data. Exam was performed using dose reduction technique. CLINICAL HISTORY: lung cancer screening current smoker 1/2 ppd x 46 years FINDINGS: CTDLvol: 2.90 DLP: 109.16 Current smoker 46 pack year history Lungs: No acute pulmonary abnormality. No suspicious nodules. Lymph nodes: No axial lymphadenopathy. Mildly enlarged mediastinal lymph nodes are seen including a 23 mm AP window lymph node. Mediastinum: Heart size is normal. Pleura/pericardium: No pleural or pericardial effusion. Other: No acute abnormality in the upper abdomen. There is a stent in the descending thoracic aorta. Prominent coronary artery calcifications are seen. IMPRESSION: No suspicious pulmonary nodule or mass. Lung RADS: 1s S qualifier: Prominent coronary artery calcifications and mediastinal lymphadenopathy. Recommendation: 1 year follow-up Reviewed, Interpreted and Dictated by Katharina Jimenez MD Transcribed by Kathy Wilkins Authenticated and [facility]
== END 2024-02-24 23:59 | disposition home or self-care (01) ==
LOC: RAD 13:24
PROVIDERS: PCP Nurse Practitioner Family; Visit Provider Nurse Practitioner Family
DX: F17.210 Nicotine dependence, cigarettes, uncomplicated (principal)
CPT/HCPCS: 71271

== ENCOUNTER 2025-02-06 09:42 | Emergency (ER) | payer MEDICARE, SELFPAY ==
[2025-02-06] VITALS (9 sets, daily range): BP systolic 130–179; BP diastolic 80–113; PULSE 54–77; RESP 16–18; TEMP 36.6–37.1; O2SAT 97–99; BMI 26.3
[2025-02-06 09:53] LABS: Microscopic, Urine URINE MICROSCOPIC (MICROSCOPIC)
[2025-02-06 09:57] LABS: Appearance,Urine CLEAR (Clear); Bilirubin,Urine Negative (Negative); Blood, Urine Negative (Negative); Color,Urine YELLOW (Yellow); Glucose,Urine (UA) Negative (Negative); Ketones,Urine Negative (Negative); Leukocyte Esterase,Urine Negative (Negative); Nitrate,Urine Negative (Negative); PH,Urine 7.5 (5.0-8.5); Protein,Urine Negative (Negative); Specific Gravity, Urine 1.015 (1.005-1.030); Urobilinogen,Urine 0.2 EU/dl (0.2)
[2025-02-06 10:05] LABS: Bacteria,Urine Trace /lpf; Squamous Epithelial Cell,Urine Occasional #/hpf (0-5)
[2025-02-06 10:06] LABS: Basophils # 0.1 K/mm3 (0-0.2); Basophils % 0.7 % (0.1-2.0); Eosinophils # 0.4 Kmm3 (0.0-0.4); Eosinophils % 2.7 % (0.1-12.0); Hematocrit 48.9 % (37.0-47.0); Hemoglobin 16.6 g/dL (12.2-16.2); Immature Granulocytes # 0.04 10^3uL; Immature Granulocytes % 0.3 %; Lymphocytes # 4.6 K/mm3 (0.7-4.5); Lymphocytes % 35.5 % (10-50); Mean Corpuscular HGB Conc 33.9 g/dL (31.8-35.4); Mean Corpuscular Hemoglobin 31.1 pg (27.0-31.2); Mean Corpuscular Volume 91.7 fl (81-99); Mean Platelet Volume 11.1 fl (7.4-10.4); Monocytes % 7.6 % (1.7-9.3); Neutrophils # 6.9 K/mm3 (1.8-7.8); Neutrophils % 53.2 % (37.0-80.0); Nucleated Red Blood Cells # 0 10^3/uL; Nucleated Red Blood Cells % 0 %; Platelet Count 341 K/mm3 (142-424); Red Blood Count 5.33 M/mm3 (4.20-5.40); Red Cell Distribution Width 14.5 % (11.5-17.5); Red Cell Distribution Width-SD 48.9 fL; White Blood Count 12.9 K/mm3 (4.8-10.8)
--- NOTE | 2025-02-06 10:08 | CT_ITS ---
FINAL REPORT TECHNIQUE: After the administration of intravenous contrast, axial images were obtained through the abdomen and pelvis by computed tomography. The study was performed with techniques to keep radiation dose as low as reasonably achievable, (ALARA). Individual dose reduction techniques using automated exposure control or adjustment of mA and/or kV according to the patient's size were employed. CLINICAL HISTORY: right flank pain COMPARISON: None FINDINGS: Abdomen: Distal end of a thoracic aortic stent is visualized. Scarring is noted at the left lung base. There is mild fatty infiltration of the liver. The gallbladder is surgically absent. The spleen is not identified. The spleen and adrenal glands are unremarkable. Kidneys demonstrate no evidence of stone or pyelonephritis. Pelvis: The appendix is not clearly identified. There are no secondary signs of appendicitis. The urinary bladder is decompressed. The uterus is not identified. Distal loop of bowel in the right hemipelvis measures up to 3.9 cm in transverse dimension. IMPRESSION: Single short segment distal loop of fluid-filled bowel in the right hemipelvis of uncertain significance. Reviewed, Interpreted and Dictated by Dexter William MD Transcribed by Janett Sandoval Authenticated and [facility]
[2025-02-06 10:12] LABS: Albumin Level 4.7 g/dl (3.5-5.0); Chloride 101 mmol/L (98-107); Sodium 139 mmol/L (136-145)
[2025-02-06 10:14] LABS: Alanine Aminotransferase 15 U/L (12-78); Aspartate Amino Transferase 27 U/L (14-36); Blood Urea Nitrogen 10 mg/dl (7-17); Carbon Dioxide 27 mmol/L (22.0-30.0); Creatinine Clearance Estimated 107 mL/min (50-200); Estimated Glomerular Filt Rate 86 ml/min (>60); GFR (African American) 104 ML/MIN (>60)
[2025-02-06 10:15] LABS: Albumin/Globulin Ratio 1.4 (1.1-1.8); Alkaline Phosphatase 129 U/L (38-126); Bilirubin,Total 0.6 mg/dl (0.2-1.3); Calcium 9.2 mg/dl (8.4-10.2); Globulin 3.4 g/dL (1.3-3.2); Glucose 103 mg/dl (74-100); Lactic Acid 1.4 mmol/L (0.7-2.1); Total Protein,Serum 8.1 g/dl (6.3-8.2)
[2025-02-06] MEDS: ONDANSETRON 4MG/2ML VIAL 4 MG IV (10:16)
[2025-02-06] MEDS: KETOROLAC 30MG/ML VIAL 30 MG IV (10:16)
[2025-02-06] MEDS: ACETAMINOPHEN 1,000MG/100ML VIAL 1000 MG IV (10:16)
[2025-02-06] MEDS: 0.9 % SODIUM CHLORIDE 1000ML 1,000 ML 999 ML IV (10:16)
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
[2025-02-06 10:24] LABS: Lipase 101 U/L (23-300)
[2025-02-06 10:25] LABS: Magnesium 2.1 mg/dl (1.6-2.3)
[2025-02-06] MEDS: SODIUM CHLORIDE 0.9% 10ML SYR (RAD ONLY) 10 ML IV (10:30)
[2025-02-06] MEDS: IOPAMIDOL-370 (76%);100ML BOTTLE 75 ML IV (10:30)
[2025-02-06] MEDS: 0.9 % SODIUM CHLORIDE 50 ML VIAL IV (10:30)
[2025-02-06 11:05] LABS: HIV Combo NEGATIVE (Negative)
--- NOTE | 2025-02-06 11:32 | PC.NURSE ---
Had surgery paged for this pt per ANJELICA Kothari
--- NOTE | 2025-02-06 11:41 | PC.NURSE ---
Dr. Brown called, now speaking with SHIVAM Kothari
== END 2025-02-06 12:05 | disposition home or self-care (01) ==
PROVIDERS: Nurse Practitioner; Emergency Provider Emergency Medicine; PCP Family Medicine
DX: R10.11 Right upper quadrant pain (principal); R11.2 Nausea with vomiting, unspecified; K52.9 Noninfective gastroenteritis and colitis, unspecified; F17.210 Nicotine dependence, cigarettes, uncomplicated
CPT/HCPCS: 74177; 80053; 81001; 83605; 83690; 83735; 85025; 87389; 96361; 96374; 96375; 99285; J0131; J1885; J2405; J7030; Q9967

== ENCOUNTER 2025-05-04 11:24 | Outpatient (CLI) | payer MEDICARE, SELFPAY ==
--- NOTE | 2025-05-04 11:37 | XR_ITS ---
FINAL REPORT CLINICAL HISTORY: COPD FINDINGS: PA and lateral views of the chest are obtained. There is no prior exam for comparison. The cardiac and mediastinal silhouettes are within normal limits. Note is made of mild emphysema. The lungs are otherwise clear. There is a vascular stent in the thoracic aorta. There is no pleural effusion, pneumothorax, or acute osseous abnormality. IMPRESSION: No radiographic evidence of acute cardiac or pulmonary disease. Reviewed, Interpreted and Dictated by Katharina Jimenez MD Transcribed by Nat Ibanez Authenticated and [facility]
== END 2025-05-04 23:59 | disposition home or self-care (01) ==
LOC: RAD 11:25
PROVIDERS: PCP Family Medicine; Visit Provider Family Medicine
DX: J44.0 Chronic obstructive pulmonary disease with (acute) lower respiratory infection (principal); J20.9 Acute bronchitis, unspecified
CPT/HCPCS: 71046